=== PATIENT | female | born 1990 | race Caucasian/White ===

== ENCOUNTER 2017-01-18 13:00 | Emergency (ER) | payer OTHER ==
[~2017-01-18] VITALS: Ht 160 cm; Wt 81.6 kg
[~2017-01-18 13:00] MED LIST: PERCOCET 5-3251 EACH PO
[2017-01-18 13:11] VITALS: BP 137/88
[2017-01-18] MEDS ORDERED: VALIUM5 M2 PO (13:32)
[2017-01-18] MEDS ORDERED: IBUPROFEN800 M1 PO (13:32)
--- NOTE | 2017-01-18 13:33 | ED NECK/BACK PAIN COMPLAINT ---
History of Present Illness General Chief Complaint: Neck/Upper Back Pain/Injury Stated Complaint: NECK PAIN Source: patient Exam Limitations: no limitations Vital Signs & Intake/Output Vital Signs & Intake/Output Vital Signs Date Time Temp Pulse Resp B/P Pulse O2 O2 Flow FiO2 Ox Delivery Rate 01/18 1311 97.9 80 18 137/88 97 Room Air Room Air Allergies Coded Allergies: No Known Allergies (06/10/16) Reconcile Medications Diazepam (Valium) 5 MG TABLET 1 TAB PO TID SPASMS Ibuprofen 800 MG TABLET 1 TAB PO TID PAIN Oxycodone HCl/Acetaminophen (Percocet 5-325 MG Tablet) 1 EACH TABLET 1 TAB PO Q6HR PRN PAIN Triage Note: TRIAGE: 26 Y/O FEMALE PRESENTS C/O 2-810 NECK PAIN - L>R SINCE THIS MORNING. REPORTS REACHING UPWARD AND "HEARD AND FELT A CRUNCH." Triage Nurses Notes Reviewed? yes Onset: Abrupt Duration: hour(s):, constant, continues in ED Timing: recent history Quality/Severity: moderate, severe Location: C-spine Method of Injury: unknown Loss of Consciousness: no loss of consciousness : No Patient currently breastfeeds: No HPI: 26-year-old female comes into emergency room with complaints of left-sided neck pain. Patient reports that she was reaching for something this morning and felt a crack in the left side of her neck and has been having pain with any type of range of motion since then. Denies any fever chills vomiting. Patient reports that she did have a sore neck earlier in the week but those symptoms had resolved. Denies any numbness or tingling shooting down her upper arms or hands. Denies any weakness in her upper extremtity. Denies any other associated symptoms. Past History Travel History Traveled to [place] past 21 day No Medical History Any Pertinent Medical History? 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 No Review of Systems Review of Systems Constitutional: Reports: no symptoms. Eyes: Reports: no symptoms. Ears, Nose, Throat, Mouth: Reports: no symptoms. Respiratory: Reports: no symptoms. Cardiovascular: Reports: no symptoms. Gastrointestinal/Abdominal: Reports: no symptoms. Musculoskeletal: Reports: see HPI. Skin: Reports: no symptoms. Neurological/Psychological: Reports: no symptoms. All Other Systems: Reviewed and Negative Physical Exam Physical Exam General Appearance: well developed/nourished, mild distress Head: atraumatic Eyes: Bilateral: normal appearance. Ears, Nose, Throat, Mouth: hearing grossly normal, moist mucous membrane Neck: limited range of motion, no nuchal rigidity, no rash Respiratory: normal breath sounds, no respiratory distress Cardiovascular: regular rate/rhythm Back: normal inspection Extremities: normal range of motion Motor: Deficit L4 Right: No Deficit L4 Left: No Deficit L5 Right: No Deficit L5 Left: No Deficit S1 Right: No Deficit S1 Right: No Neurologic/Psych: awake, alert, oriented x 3, normal mood/affect Skin: intact, normal color, warm/dry Progress Differential Diagnosis: C spine injury, carotid dissection, cauda equina syn, herniated disc, myofascial strain, pyelo/UTI, spinal cord inj, T/L spine injury, ureterolithiasis, muscle spasms, Plan of Care: 01/18/2017 1:52:13 PM Patient clinically looks well. Nontoxic-appearing. In no apparent distress. Pain is consistent with muscular pain. No need for x-ray at this time. Patient agrees with my plan of care. Return if any other concerns. Departure Departure Disposition: HOME OR SELF CARE Condition: Stable Clinical Impression Primary Impression: Muscle spasms of neck Referrals: PATIENT HAS NO PRIMARY CARE DR (PCP/Family) Additional Instructions: Take Valium and Motrin 800 as prescribed. Moist heat to neck. Follow-up with physical therapy if not better in 3-5 days. Return to the emergency room if any other concerns worsening symptoms. Please go over all results of today's visit with your primary care doctor. Contact your primary care doctor to let them know you were here in the emergency room. There may be nonspecific findings which may not be related to your visit today here in the emergency room but may require further evaluation and chronic monitoring by your primary care doctor. If you had a laceration today the chance of foreign body always remains. You should follow-up with your primary care doctor for recheck in 3-5 days for a wound check. If you had an x-ray done there is a chance that a fracture could have been missed on initial read and you should follow-up with your primary care doctor for repeat x-rays if symptoms persist. If your blood pressure was elevated here in the emergency room please have rechecked by her primary care doctor within the next 48 hours by your primary care doctor. If you were prescribed a narcotic here in the emergency room or any type of controlled substances you're not allowed to drive while taking this medication or operate any type of heavy machinery. Narcotics can make you feel lightheaded dizziness nausea and can cause constipation. You may need to pickle cutter a stool softener. Thank you for choosing [facility] emergency room. Please return to the emergency room immediately if you have any other concerns worsening of symptoms. Departure Forms: Customer Survey General Discharge Information Prescriptions: Current Visit Scripts Diazepam (Valium) 1 TAB PO TID #20 TAB Ibuprofen 1 TAB PO TID #30 TAB
== END 2017-01-18 13:42 ==
LOC: ERH 13:00
DX: M62.838 Other muscle spasm (principal)

== ENCOUNTER 2018-02-23 18:20 | Emergency (ER) | payer OTHER ==
[~2018-02-23] VITALS: Ht 160 cm; Wt 83.9 kg
[~2018-02-23 18:20] MED LIST changes: +IBUPROFEN800 M1 PO; +VALIUM5 M2 PO
--- NOTE | 2018-02-23 18:50 | ED GENERAL ADULT ---
History of Present Illness General Chief Complaint: General Adult Stated Complaint: HEMMROIDS AND SHAKING Source: patient Exam Limitations: no limitations Vital Signs & Intake/Output Vital Signs & Intake/Output Vital Signs Date Time Temp Pulse Resp B/P B/P Pulse O2 O2 Flow FiO2 Mean Ox Delivery Rate 02/23 1951 98.8 87 18 149/96 98 Room Air Room Air 02/24 1836 99.1 97 18 166/105 98 Room Air Allergies Coded Allergies: No Known Allergies (06/10/16) Reconcile Medications Diazepam (Valium) 5 MG TABLET 1 TAB PO TID SPASMS Docusate Sodium (Colace) 100 MG CAPSULE 1 CAP PO BID HEMORRHOID Hydrocortisone (Proctocort) 1 % CREAM..G. 1 PAS RI DAILY PRN HEMORRHOIDS Ibuprofen 800 MG TABLET 1 TAB PO TID PRN PAIN Ibuprofen 800 MG TABLET 1 TAB PO TID PAIN Oxycodone HCl/Acetaminophen (Percocet 5-325 MG Tablet) 1 EACH TABLET 1 TAB PO Q6HR PRN PAIN Triage Note: RECEIVED 27 YO FEMALE WITH C/O SHAKING X FEW HOURS AND FEELING LIKE SHE IS BEING CHOKED. + LIGHTHEADED, NO C/O N/V/D. NO C/O ABDOMINAL OR CHEST PAIN. PT ALSO REPORTS OF SEVERE HEMORRHOIDAL PAIN X ONE DAY. O2 SATS 98% IN TRIAGE. B/P 166/105. NO C/O ACUTE SOB. Triage Nurses Notes Reviewed? yes Onset: Abrupt Duration: day(s): Timing: recent history : No Patient currently breastfeeds: No HPI: 02/23/18 27-year-old female presents to the emergency department for shaking, light headed, dizzy sensation and also having an external hemorrhoid. She says that she's had a hemorrhoid in the past that needed to be cut. She says that she's got pain on defecation. This is making her very anxious. She denies any abdominal pain or bleeding. She denies any chest pain or shortness of breath. No hemoptysis. Past History Travel History Traveled to [place] past 21 day No Medical History Any Pertinent Medical History? 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 No Review of Systems Review of Systems Constitutional: Denies: fever. EENTM: Reports: no symptoms. Respiratory: Denies: short of breath. Cardiovascular: Denies: chest pain. GI: Denies: abdominal pain, bloody stool. Genitourinary: Reports: no symptoms. Musculoskeletal: Reports: no symptoms. Skin: Denies: rash. Neurological/Psychological: Reports: no symptoms. Hematologic/Endocrine: Reports: no symptoms. Immunologic/Allergic: Reports: no symptoms. Physical Exam Physical Exam General Appearance: alert, awake, anxious, mild distress Head: atraumatic, normal appearance Eyes: Bilateral: normal appearance, PERRL, EOMI. Ears, Nose, Throat: normal pharynx, normal ENT inspection Neck: normal inspection, supple, full range of motion Respiratory: normal breath sounds, chest non-tender, no respiratory distress Cardiovascular: regular rate/rhythm Peripheral Pulses: 4+ radial (R), 4+ radial (L) Gastrointestinal: soft, non-tender Rectal: hemorrhoids Back: normal range of motion Extremities: no edema Neurologic/Psych: no motor/sensory deficits, awake, alert, oriented x 3 Skin: intact, normal color, warm/dry Core Measures ACS in differential dx? No CVA/TIA Diagnosis: No Sepsis Present: No Sepsis Focused Exam Completed? No Progress Differential Diagnoses I considered the following diagnoses in my evaluation of the patient: [External hemorrhoid, perirectal abscess, thrombosed hemorrhoid. Anxiety, pulmonary embolism, hypertension] Plan of Care: Orders Procedure Date/time Status D-DIMER 02/23 1847 Complete COMPREHENSIVE METABOLIC PANEL 02/23 1847 Complete CBC WITHOUT DIFFERENTIAL 02/23 1847 Complete EKG 02/23 1847 Active URINE 02/23 1842 Complete URINALYSIS 02/23 1842 Complete Laboratory Tests 02/23/18 1900: Urine Color YEL, Urine Clarity CLEAR, Urine pH 6.0, Ur Specific Marshall 1.025, Urine Protein NEG, Urine Ketones NEG, Urine Nitrite NEG, Urine Bilirubin NEG, Urine Urobilinogen 0.2, Ur Leukocyte Esterase NEG, Ur Microscopic EXAM NOT REQUIRED, Urine Hemoglobin NEG, Urine Glucose NEG, Urine Test NEGATIVE 02/23/181854: Anion Gap 15, Estimated GFR > 60, BUN/Creatinine Ratio 11.4, Glucose 94, Calcium 9.4, Total Bilirubin 0.6, AST 26, ALT 24, Alkaline Phosphatase 107, Total Protein 7.7, Albumin 4.5, Globulin 3.2, Albumin/Globulin Ratio 1.4, D-Dimer High Sensitivty < 200, CBC w Diff NO MAN DIFF REQ, RBC 5.25, MCV 88.0, MCH 29.8, MCHC 33.8, RDW 13.2, MPV 7.6, Gran % 60.2, Lymphocytes % 31.9, Monocytes % 5.5, Eosinophils % 2.0, Basophils % 0.4, Absolute Granulocytes 6.9 H, Absolute Lymphocytes 3.6 H, Absolute Monocytes 0.6, Absolute Eosinophils 0.2, Absolute Basophils 0 Initial ED EKG: NSR Departure Departure Disposition: HOME OR SELF CARE Condition: Stable Clinical Impression Primary Impression: External hemorrhoids Secondary Impressions: Hypertension Referrals: Patient Has No Primary Care Dr (PCP/Family) Departure Forms: Customer Survey General Discharge Information Prescriptions: Current Visit Scripts Docusate Sodium (Colace) 1 CAP PO BID #20 CAP Ibuprofen 1 TAB PO TID PRN PAIN #15 TAB Hydrocortisone (Proctocort) 1 PAS RI DAILY PRN HEMORRHOIDS #30 GM Comments 02/23/18 Patient's labs are completely unremarkable. She does have an external hemorrhoid. There is no active bleeding was minimally tender. The patient was instructed to use the Proctocort cream as directed, take Colace, have her blood pressure rechecked on Thursday. She will follow-up with a [facility] faculty practice physician and also with Dr. Santos. She was instructed to take warm soaks, and to use Tucks pads as directed. Critical Care Note Critical Care Note Critical Care Time: non-applicable
[2018-02-23 19:05] LABS: ABSOLUTE BASOPHIL COUNT 0 /CUMM (0.0-0.2); ABSOLUTE EOSINOPHIL COUNT 0.2 /CUMM (0.0-0.7); ABSOLUTE GRANULOCYTE CT 6.9 /CUMM (1.4-6.5); ABSOLUTE LYMPH COUNT 3.6 /CUMM (1.2-3.4); ABSOLUTE MONOCYTE COUNT 0.6 /CUMM (0.10-0.60); BASOPHIL % 0.4 % (0.0-2.0); GRANULOCYTE % 60.2 % (42.2-75.2); HEMATOCRIT 46.2 % (37-47); MEAN CORPUSCULAR HGB 29.8 PG (27.0-31.0); MEAN CORPUSCULAR HGB CONC 33.8 G/DL (33.0-37.0); MEAN PLATELET VOLUME 7.6 FL (7.4-10.4); PLATELET COUNT 389 /CUMM (130-400); RBC DISTRIBUTION WIDTH 13.2 % (11.5-14.5); RED BLOOD CELL CT 5.25 /CUMM (4.20-5.40); WHITE BLOOD CELL COUNT 11.4 /CUMM (4.8-10.8)
[2018-02-23] MEDS ORDERED: COLACE100 M1 PO (19:47)
[2018-02-23] MEDS ORDERED: IBUPROFEN800 M1 PO (19:50)
[2018-02-23 19:51] VITALS: BP 149/96
[2018-02-23] MEDS ORDERED: PROCTOCORT28.35 GM PR (19:58)
== END 2018-02-23 20:14 ==
LOC: ERH 18:20
PROVIDERS: Emergency Medicine
DX: K64.4 Residual hemorrhoidal skin tags (principal); I10 Essential (primary) hypertension
CPT/HCPCS: 81003; 81025; 93005; 93010